=== PATIENT | female | born 1990 | race Two or more races ===

== ENCOUNTER 2017-10-07 18:17 | Emergency (ER) | payer MEDICAID ==
[2017-10-07 21:48] LABS: Hematocrit 37 % (35-47); Hemoglobin 12.5 g/dl (12.0-16.0); Mean Corpuscular HGB Conc 34 g/dl (31-36); Mean Corpuscular Hemoglobin 31 pg (27-31); Mean Corpuscular Volume 91 fL (80-97); Mean Platelet Volume 9 um3 (7.4-10.4); Red Blood Count 4.07 10^6/ul (4.0-5.4); Red Cell Distribution Width 14 % (10.5-15); White Blood Count 6.7 10^3/ul (3.5-10.8)
[2017-10-07 22:03] LABS: ALT 19 U/L (7-52); AST 20 U/L (13-39); Albumin 4.6 g/dL (3.2-5.2); Alkaline Phosphatase 68 U/L (34-104); Anion Gap 7 mmol/L (2-11); Blood Urea Nitrogen 9 mg/dL (6-24); C Reactive Protein 1.91 mg/L (< 5.00); CO2 Carbon Dioxide 26 mmol/L (22-32); Calcium 9.4 mg/dL (8.6-10.3); Chloride 107 mmol/L (101-111); Globulin 3.3 g/dL (2-4); Glucose 95 mg/dL (70-100); Lipase 39 U/L (11.0-82.0); Magnesium 2.2 mg/dL (1.9-2.7); Potassium 3.5 mmol/L (3.5-5.0); Sodium 140 mmol/L (133-145); Total Protein 7.9 g/dL (6.4-8.9)
[2017-10-07 22:24] LABS: BUN/Creatinine Ratio 16.1 (8-20); EGFR African American 165.8 (>60); EGFR Non-African American 128.9 (>60)
[2017-10-07] MEDS ORDERED: Ketorolac INJ* 60 MG/2 ML VIAL IM ONE (22:31)
--- NOTE | 2017-10-07 23:14 | ED ---
Abdominal Pain/Female - HPI Summary HPI Summary: 27 female presents to ED with with complaints of RLQ and right flank pain that has been ongoing for the past 2 weeks and worsening. 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 Patient states she has had pain in the same area for years, ever since getting a c -section 7 years ago, however this pain is worse and has been much more constant. Describes pain to be sharp and shooting that radiates into right flank/lower back and is constant. States the pain also gives her a headache. Takes ibuprofen and does have relief. Last dose was around 3pm today. Denies vomiting but admits to nausea. Denies constipation and diarrhea. LBM was today and normal. Denies vaginal bleeding, discharge. States she the pain worsens with urination. Denies fever/chills, chest pain, difficulty breathing. No PMHx. Denies taking any medications other than ibuprofen. States she does not get her menses very normally but did get it ~ 1 month ago. Denies concern for STD. - History of Current Complaint Chief Complaint: EDAbdPain Stated Complaint: ABD PAIN Time Seen by Provider: 10/07/17 22:02 Hx Obtained From: Patient Hx Last Menstrual Period: last month Onset/Duration: Gradual Onset, Lasting Weeks, Still Present, Worse Since Timing: Constant Severity Initially: Mild Severity Currently: Moderate Pain Intensity: 5 Pain Scale Used: 0-10 Numeric Location: Discrete At: RLQ Radiates: Yes Radiates to: Back, Flank Character: Sharp Aggravating Factor(s): Other: - urination, supine position Alleviating Factor(s): OTC Analgesics - ibuprofen Associated Signs and Symptoms: Positive: Urinary Symptoms - pain with urination , Nausea. Negative: Fever, Constipation, Decreased Appetite, Vaginal Bleeding, Vaginal Discharge, Vomiting, Diarrhea Allergies/Adverse Reactions: Allergies Allergy/AdvReac Type Severity Reaction Status Date / Time No Known Allergies Allergy Verified 10/08/17 01:22 PMH/Surg Hx/FS Hx/Imm Hx Endocrine/Hematology History: Denies: Hx Diabetes Cardiovascular History: Denies: Hx Hypertension Respiratory History: Denies: Hx Asthma - Surgical History Surgery Procedure, Year, and Place: n/a - Immunization History Immunizations Up to Date: Yes Infectious Disease History: No Infectious Disease History: Denies: Traveled Outside the [place] in Last 30 Days - Family History Known Family History: Positive: Unknown - Social History Alcohol Use: None Substance Use Type: Reports: None Smoking Status (MU): Never Smoked Tobacco Review of Systems Constitutional: Negative Cardiovascular: Negative Respiratory: Negative Positive: Abdominal Pain, Nausea Positive: dysuria Skin: Negative Positive: Headache All Other Systems Reviewed And Are Negative: Yes Physical Exam Triage Information Reviewed: Yes Vital Signs On Initial Exam: Initial Vitals Temp Pulse Resp BP Pulse Ox 98.2 F 55 18 124/70 100 10/07/17 18:22 10/07/17 18:22 10/07/17 18:22 10/07/17 18:22 10/07/17 18:22 Vital Signs Reviewed: Yes Appearance: Positive: Well-Appearing, Well-Nourished, Pain Distress - mild, holding RLQ, knees bent up toward abdomen Skin: Positive: Warm, Skin Color Reflects Adequate Perfusion, Dry. Negative: Cold, Cyanosis @, Jaundiced, Pale, Erythema @ Head/Face: Positive: Normal Head/Face Inspection Eyes: Positive: Conjunctiva Clear ENT: Positive: Hearing grossly normal, Pharynx normal Neck: Positive: Supple, Nontender, No Lymphadenopathy Respiratory/Lung Sounds: Positive: Clear to Auscultation, Breath Sounds Present. Negative: Rales, Rhonchi, Wheezes Cardiovascular: Positive: Normal, RRR, Pulses are Symmetrical in both Upper and Lower Extremities. Negative: Murmur, Rub Abdomen Description: Positive: No Organomegaly, Soft, CVA Tenderness (R), Guarding, Other: - negative rebound and psoas. tender on palpation of RLQ and suprapubic area. Negative: Bruit, CVA Tenderness (L), Distended, McBurney's Point Tenderness Bowel Sounds: Positive: Present Pelvic Exam: Positive: external exam normal, speculum exam normal, bimanual exam normal, no cerv. motion tender, no masses, discharge - green/white colored purulent discharge resembling BV infection. malodorous. no strawberry cervix or cervical motion tendnerss. vaginal ni erythematous and appear irritated. does not resemble olimpia., tender adnexa - R, tender uterus. Negative: active bleeding, blood, lesions, mass, tender w/ cervical motion Musculoskeletal: Positive: Normal, Strength/ROM Intact Neurological: Positive: Normal, Sensory/Motor Intact, Alert, Oriented to Person Place, Time, NV Bundle Intact Distally, Normal Gait Diagnostics - Vital Signs Vital Signs Temp Pulse Resp BP Pulse Ox 10/07/17 22:30 56 124/72 99 10/07/17 22:29 58 100 10/07/17 20:40 99.4 F 54 16 116/69 100 10/07/17 18:22 98.2 F 55 18 124/70 100 - Laboratory Lab Results: Lab Results 10/07/17 10/07/17 10/07/17 Range/Units 21:33 21:33 21:33 WBC 6.7 (3.5-10.8) 10^3/ul RBC 4.07 (4.0-5.4) 10^6/ul Hgb 12.5 (12.0-16.0) g/dl Hct 37 (35-47) % MCV 91 (80-97) fL MCH 31 (27-31) pg MCHC 34 (31-36) g/dl RDW 14 (10.5-15) % Plt Count 205 (150-450) 10^3/ul MPV 9 (7.4-10.4) um3 Neut % (Auto) 52.8 (38-83) % Lymph % (Auto) 38.2 (25-47) % Tompkins % (Auto) 7.2 (1-9) % Eos % (Auto) 1.4 (0-6) % Baso % (Auto) 0.4 (0-2) % Absolute Neuts (auto) 3.5 (1.5-7.7) 10^3/ul Absolute Lymphs (auto) 2.6 (1.0-4.8) 10^3/ul Absolute Monos (auto) 0.5 (0-0.8) 10^3/ul Absolute Eos (auto) 0.1 (0-0.6) 10^3/ul Absolute Basos (auto) 0 (0-0.2) 10^3/ul Absolute Nucleated RBC 0 10^3/ul Nucleated RBC % 0.1 Sodium 140 (133-145) mmol/L Potassium 3.5 (3.5-5.0) mmol/L Chloride 107 (101-111) mmol/L Carbon Dioxide 26 (22-32) mmol/L Anion Gap 7 (2-11) mmol/L BUN 9 (6-24) mg/dL Creatinine 0.56 (0.51-0.95) mg/dL Est GFR ( Amer) 165.8 (>60) Est GFR (Non-Af Amer) 128.9 (>60) BUN/Creatinine Ratio 16.1 (8-20) Glucose 95 (70-100) mg/dL Lactic Acid 1.3 (0.5-2.0) mmol/L Calcium 9.4 (8.6-10.3) mg/dL Magnesium 2.2 (1.9-2.7) mg/dL Total Bilirubin 0.40 (0.2-1.0) mg/dL AST 20 (13-39) U/L ALT 19 (7-52) U/L Alkaline Phosphatase 68 (34-104) U/L C-Reactive Protein 1.91 (< 5.00) mg/L Total Protein 7.9 (6.4-8.9) g/dL Albumin 4.6 (3.2-5.2) g/dL Globulin 3.3 (2-4) g/dL Albumin/Globulin Ratio 1.4 (1-3) Lipase 39 (11.0-82.0) U/L Beta HCG, Quant < 0.60 mIU/mL Result Diagrams: 10/07/17 21:33 10/07/17 21:33 Lab Statement: Any lab studies that have been ordered have been reviewed, and results considered in the medical decision making process. - CT abd/pelvis without CT Interpretation: No Acute Changes - no nephrolithiasis, urterolithiassis or obstructive uropathy. no bladder calculi. unremarkable pancreas and gallbladder. no bowel obstruction, colitis, diverticulitis, free fluid or free air. normal appendix. normal CT abd/pelvis. CT Interpretation Completed By: Radiologist - Ultrasound No standard instances Ultrasound Interpretation: No Acute Changes - RLQ and transvaginal US: appendix is not visualized. normal uterus normal homogeneous endometrial complex measuring 4mm in thickness. normal follicular right ovary with positive doppler blood flow. normal follicular left ovary with positive dopple blood flow. no acute abnormalities. Ultrasound Interpretation Completed By: Radiologist Re-Evaluation - Re-Evaluation First Eval Re-Evaluation Time: 23:46 Change: Improved - had relief after toradol 6/10 Abdominal Pain Fem Course/Dx - Course Course Of Treatment: given toradol for pain had relief. labs obtained and unmarkable without any signs of infection or inflammation. obtained RLQ and transvaginal ultrasound without abnormal findings. CT abd/pelvis obtained to rule out renal calculi and other etiology, was normal without acute findings. normal vitals and PE findings other than tenderness on palpation of RLQ. upon pelvic exam noted probable BV infection. will treat with flagyl. could be cause of pain. patient denied STD concern however may not understand question completely due to language barrier. Will wait for culture results. Sent home on flagyl. Ibuprofen/tylenol for pain. Aware of worsening signs and symptoms and to return if occur. Follow up with PCP. No concern for other etiology at this time. Patient agrees and understands. Patient will need angolan interpretor if called for med change or culture results. - Diagnoses Differential Diagnosis: Positive: Appendicitis, Constipation, Diverticulitis, Ovarian Cyst, Pelvic Inflammatory Disease, Renal Colic, Urinary Tract Infection , Other - renal calculi Provider Diagnoses: Bacterial vaginosis, Lower abdominal pain Discharge - Discharge Plan Condition: Stable Disposition: HOME Prescriptions: Metronidazole [Flagyl 500 MG TAB] 500 mg PO BID #13 tab Patient Education Materials: Bacterial Vaginosis (ED), Acute Abdominal Pain (ED ) Print Language: PRYDEINIG Referrals: [facility] [Outside] Noreen Pacheco MD [Medical Doctor] - No Primary Care Phys,NOPCP [Primary Care Provider] - Additional Instructions: Take medication as prescribed until entire dose is finished. Any new or worsening symptoms please seek medical attention promptly. Follow up with PCP.
[2017-10-08 01:45] LABS: Urine Bacteria Absent (Absent); Urine Bilirubin Negative (Negative); Urine Glucose Negative (Negative); Urine Nitrite Negative (Negative)
[2017-10-08] MEDS ORDERED: metroNIDAZOLE TAB* 250 MG PO ONE (01:59)
[2017-10-08 04:48] VITALS: BP 106/65
[2017-10-08 07:03] LABS: Trichomonas Source Endocervical (Negative)
--- NOTE | 2017-10-08 09:55 | RAD ---
CLINICAL HISTORY: Right flank and lower quadrant pain COMPARISON: Same day ultrasound of the right lower quadrant and pelvis that did not discretely visualize the appendix or demonstrate any acute gynecologic abnormalities. TECHNIQUE: Noncontrast CT examination of the abdomen and pelvis from the lung bases through the initial tuberosities. FINDINGS: VISUALIZED LUNG BASES: The visualized lung bases are grossly clear. There is no pleural effusion. ABDOMEN AND PELVIS: Evaluation of the solid organs and vasculature is limited without intravenous contrast. The liver, spleen, pancreas and adrenal glands are grossly normal in appearance. The gallbladder is normal. The kidneys are normal in appearance without focal mass, calcification or signs of hydronephrosis. Evaluation of the gastrointestinal tract is limited without oral contrast. The small and large bowel are not distended.The patient's normal appendix is identified in the right lower quadrant measuring just under 6 mm in diameter with gas in the lumen. There is no gross retroperitoneal or mesenteric lymphadenopathy. The pelvic viscera is normal in appearance. The abdominal aorta and iliac arteries are normal in course and diameter. There are no sinister bone lesions. IMPRESSION: Normal CT examination.
--- NOTE | 2017-10-08 13:00 | RAD ---
INDICATION: Right lower quadrant and suprapubic pain COMPARISON: None. TECHNIQUE: Real-time transabdominal and transvaginal ultrasound examination of the female pelvis as well as sonographic examination of the right lower quadrant including grayscale and Doppler color flow imaging. FINDINGS: Uterus: The uterus is normal in size and echogenicity measuring 7.2 x 3.3 x 3.9 cm. The endometrial stripe is smooth and uniform measuring 4 mm in thickness. Ovaries: The right and left ovary measure 2.9 x 1.2 x 3.1 cm and 2.9 x 2.1 x 2.7 cm, respectively. Normal arterial and venous waveforms are identified. A 9 mm hyperechogenic focus in the left ovary is most consistent with a dominant follicle in a woman of this age. There is no free fluid in the cul-de-sac. Dedicated imaging of the right lower quadrant as not visualize the appendix. There is no fluid collection or visible lymphadenopathy. IMPRESSION: 1. Normal and age-appropriate pelvic ultrasound. 2. Nonvisualization of the appendix and no inflammatory changes in the right lower quadrant.
--- NOTE | 2017-10-09 09:00 | PN ---
Progress Note - Progress Note Date of Service: 10/09/17 Note: Patient vaginal culture grew gardnerella. Patient placed on flagyl so no further action needed.
--- NOTE | 2017-10-10 08:52 | PN ---
Progress Note - Progress Note Date of Service: 10/10/17 Note: Patient urine grew strep group b 1-10,000. This is likely a contaminate so will not treat at this time.
== END 2017-10-08 03:00 | disposition home or self-care (01) ==
LOC: ED 18:17
DX: N76.0 Acute vaginitis (principal); R10.30 Lower abdominal pain, unspecified; B95.1 Streptococcus, group B, as the cause of diseases classified elsewhere
CPT/HCPCS: 36415; 74176; 76705; 76830; 80053; 81003; 81015; 83605; 83690; 83735; 84702; 85025; 86140; 87077; 87086; 87480; 87491; 87510; 87591; 87661; 96372; 99283; A9270-GY; J1885

== ENCOUNTER 2019-07-08 14:52 | Emergency (ER) | payer MEDICAID ==
[2019-07-08 15:37] LABS: ABS Lymphocytes 1.9 10^3/ul (1.0-4.8); ABS Monocytes 0.6 10^3/ul (0-0.8); ABS Neutrophils 7.5 10^3/ul (1.5-7.7); Eosinophil % 0.5 %; Hematocrit 34 % (35-47); Hemoglobin 11.5 g/dL (12.0-16.0); Lymphocyte % 19.2 %; Mean Corpuscular HGB Conc 34 g/dL (31-36); Mean Corpuscular Hemoglobin 31 pg (27-31); Mean Corpuscular Volume 90 fL (80-97); Mean Platelet Volume 8.7 fL (7.4-10.4); Platelet Count 201 10^3/uL (150-450); Red Blood Count 3.74 10^6 /uL (3.70-4.87); Red Cell Distribution Width 13 % (10-15); White Blood Count 10.1 10^3/uL (3.5-10.8)
[2019-07-08 16:00] LABS: Albumin 4.1 g/dL (3.2-5.2); Albumin/Globulin Ratio 1.5 (1-3); C Reactive Protein 4.24 mg/L (<8.01); Calcium 8.9 mg/dL (8.6-10.3); EGFR African American 175.3 (>60); EGFR Non-African American 144.9 (>60); Globulin 2.7 g/dL (2-4); Potassium 3.4 mmol/L (3.5-5.0); Total Bilirubin 0.3 mg/dL (0.2-1.0); Total Protein 6.8 g/dL (6.4-8.9)
--- OUTSIDE RECORDS SUMMARY | 2019-07-08 17:45 | XMS REPORT ---
:1990 Author Organization [facility] Address [address] [place] [address] Care Team Providers Name Role Phone Minor Patel Unavailable Unavailable PROBLEMS Type Condition ICD9-CM Code [id number] Code Onset Condition SNOMED Code Dates Status Problem Other chronic G89.29 Active 81443567 pain Problem Primary insomnia F51.01 Active 5337749 Problem History of Z86.32 Active 368396229 gestational diabetes Problem Hx gestational Z86.32 Active 118472487 diabetes ALLERGIES No Information ENCOUNTERS Encounter Location Date Diagnosis Facilitated Enrollment - UNKNOWN Jul, [address] Jun, [facility] [place] [address] Jun, [facility] [place] [address] Jun, [facility] [place] [address] Jun, Pain of right upper [facility] [place] [address] extremity M79.601 ; Positive urine test Z32.01 and Routine screening for STI (sexually transmitted infection) Z11.3 [facility] [address] [facility] [place], [place] [address] Apr, [facility] [place] [address] Apr, Encounter for Nexplanon [facility] [place] [address] removal Z[address] Apr, [facility] [place] [address] Case Management [address] [place], [place] [address] [place] [address] [place], [place] [address] [place] [address] [place] Apr, [facility] [place] [address] [place] [address] [place] Feb, [facility] [place] [address] [place] [address] [place] Jan, [facility] [place] [address] [facility] - Resource - [place] UNKNOWN Jan, [place] [address] [place] Jan, [facility] [place] [address] [place] [address] [place] Jan, [facility] [place] [address] [place] [address] [place] Dec, [facility] [place] [address] [place] Jaleel Migrant [address] May, Pain of left foot M79.672 [facility] [address] [place], [place] ; Pain in right foot [id number] M79.671 and Primary insomnia F51.01 Case Management [address] [place], [place] [address] [place] [address] [place] Apr, [facility] [place] [address] Case Management [address] [place], [place] [address] [place] Guidoy Migrant [address] Apr, [facility] [address] [place], [place] [id number] Case Management [address] [place], [place] [address] [facility] [address] Apr, Low back pain M54.5 and [address] [place], [place] Other chronic pain G89.29 [id number] [place] [place] [facility] [address] March, [facility] [address] [place], [place] [id number] [address] [place], [place] [address] [facility] [place] [facility] [address] March, Salivary duct obstruction [facility] [address] [place], [place] K11.8 ; Low back pain [id number] M54.5 and Other chronic pain G89.29 [facility] [address] [place], [place] [address] Jan, [place] [address] [facility] [address] Nov, Screening for [address] [place], [place] hypertension Z13.6 ; [id number] Screening for diabetes mellitus (DM) Z13.1 ; Hx gestational diabetes Z86.32 and Influenza vaccine administered Z23 [place] [address] [place], [facility] [place] [address] [place] Jaleel Migrant [address] Aug, [facility] [address] [place] [id number] [place] Jaleel Navarro [address] Jul, Women's annual routine [facility] [address] [place] gynecological examination [id number] Z01.419 ; Encounter for screening for malignant neoplasm of cervix Z12.4 ; Screening breast examination Z12.31 ; Scar contracture L90.5 and History of gestational diabetes Z86.32 [facility] [address] Jul, [address] [place], [place] [id number] [address] [place], [facility] [place] [address] [place] [address] [place] Jun, [facility] [place] [address] [place] May, [facility] [place] [address] [place] [address] [place] Apr, [facility] [place] [address] [facility] [address] March, [address] [place] [id number] [address] [place], Nexplanon insertion [facility] [place] [address] Z[address] Feb, [place] [address] [place] [address] [place] Sep, [facility] [place] [address] Case Management [address] [place], [place] [address] [place] Jaleel Navarro [address] Aug, [facility] [address] [place], [place] [id number] Case Management [address] [place], [place] [address] [facility] [address] Aug, [address] [place], [place] [id number] [facility] [address] Sep, [address] [place] [id number] [facility] [address] Sep, Need for prophylactic [address] [place], [place] vaccination and [id number] inoculation against influenza Z23 Case Management [address] [place], [place] [address] Jun, [place] [address] lower quadrant 789.03 and Obesity 278.00 [facility] [address] May, [address] [place], [place] [id number] [facility] [address] [place] [address] Rd Suite May, ABDMNAL PAIN [facility] S[address] [place] 789.00 and SCREEN FOR [id number] HYPERTENSION V81.1 [facility] [address] [place] [address] Rd [address] May, [address] [place], [place] [id number] [address] May, [place] [address] Chau Jaleel Migrant [address] [place] [address] Rd [address] May, Amenorrhea 626.0 ; [facility] [address] [place], [place] History of gestational [id number] diabetes V12.21 ; Contraception management V25.9 and Pelvic pain in female 625.[address] March, [place] [address] Facilitated Enrollment - [address] [facility] March, [facility] [place] [address] [facility] [address] [place] [address] Rd Suite Dec, SCREEN FOR HYPERTENSION [address] [place], [place] V81.1 ; History of [id number] gestational diabetes V12.21 and Abnormal glucose 790.29 Facilitated Enrollment - UNKNOWN Oct, [facility] [address] [facility] Jun, [place] [address] Case Management [address] [place], [place] [address] IMMUNIZATIONS No Known Immunizations SOCIAL HISTORY Never Assessed REASON FOR REFERRAL FUNCTIONAL STATUS PLAN OF CARE VITAL SIGNS MEDICATIONS Unknown Medications PROCEDURES No Known procedures RESULTS No Results REASON FOR VISIT Information Request Insurance Providers [facility] Patient Patient Patient Patient Patient Subscriber Subscriber Subscriber Group Insurance Plan Plan Plan Plan ID Relationship Address Phone Name Date of ID Name Date of No Type Insurance Insurance Insurance Coverage to Subscriber Address Phone Name Dates Medicaid [phone] Medicaid self [place] [id number] [facility] [address] [place] [address] Srinivas Case Man [phone] Case Man self [place]ises [id number] [facility] David Mg [address] [place] [address] InCdiane Espino Voucher Voucher Case Man [phone] Case Man self Ul[place] [id number] [place] [facility] [address] John Espino Voucher Voucher MEDICAL (GENERAL) HISTORY Type Description Date Medical History History of gestational Diabetes in 2009 and 2013, on oral meds Medical History Pre-diabetes: A1c: 6.0 in 12/2014. Surgical History 2009 Hospitalization History 2010
--- OUTSIDE RECORDS SUMMARY | 2019-07-08 17:45 | XMS REPORT ---
:1989 Author Organization [facility] Address [address] [place] [address] Care Team Providers Name Role Phone Priyanka Hughes Unavailable Unavailable PROBLEMS Type Condition ICD9-CM Code [id number] Code Onset Condition SNOMED Code Dates Status Problem Other chronic G89.29 Active 00725363 pain Problem Primary insomnia F51.01 Active 2331505 Problem History of Z86.32 Active 942215683 gestational diabetes Problem Hx gestational Z86.32 Active 837806237 diabetes ALLERGIES No Information ENCOUNTERS Encounter Location Date Diagnosis Facilitated Enrollment - UNKNOWN Jul, [address] Jun, [facility] [address] Jun, [facility] [place] [address] Jun, [facility] [place] [address] Jun, [facility] [place] [address] Jun, Pain of right upper [facility] [place] [address] extremity M79.601 ; Positive urine test Z32.01 and Routine screening for STI (sexually transmitted infection) Z11.3 [facility] [address] [place], [place] [address] Apr, [facility] [address] Apr, Encounter for Nexplanon [facility] [address] removal Z30.[address] Apr, [place] [address] Case Management [address] [place], [place] [address] [facility] [address] [place], [place] [address] [place] [address] [place] Apr, [facility] [place] [address] [facility] [address] [place] Feb, [facility] [place] [address] [facility] [address] [place] Jan, [facility] [place] [address] [facility] - Resource - [place] UNKNOWN Jan, [facility] [address] [place] Jan, [facility] [place] [address] [place] [address] Jan, [facility] [place] [address] [facility] [address] [place] Dec, [facility] [place] [address] King Jaleel Migrant [address] Suite May, Pain of left foot M79.672 [facility] [address] [place], [place] ; Pain in right foot [id number] M79.671 and Primary insomnia F51.01 Case Management [address] [place], [place] [address] [facility] [address] [place] Apr, [facility] [place] [address] Case Management [address] [place], [place] [address] King Guidoy Migrant [address] Suite Apr, [facility] Center [address] [place], [place] [id number] Case Management [address] [place], [place] [address] [facility] [address] Suite Apr, Low back pain M54.5 and [address] [place], [place] Other chronic pain G89.29 [id number] Chau Morton Migrant [address] Suite March, [facility] Center [address] [place], [place] [id number] [address] [place], [place] [address] Chau Morton Migrant [address] Suite March, Salivary duct obstruction [facility] [address] [place], [place] K11.8 ; Low back pain 821536611 M54.5 and Other chronic pain G89.29 Case Management [address] [place], [place] [address] Jan, [place] [address] [facility] [address] Jules, 2018 Screening for [address] [place] hypertension Z13.6 ; [id number] Screening for diabetes mellitus (DM) Z13.1 ; Hx gestational diabetes Z86.32 and Influenza vaccine administered Z23 [address] [place] Sep, [facility] [place] [address] King Jaleel Migrant [address] Suite Aug, [facility] [address] [place], [place] [id number] King Jaleel Migrant [address] Suite Jul, Women's annual routine [facility] Center [address] [place] gynecological examination [id number] Z01.419 ; Encounter for screening for malignant neoplasm of cervix Z12.4 ; Screening breast examination Z12.31 ; Scar contracture L90.5 and History of gestational diabetes Z86.32 [facility] [address] Suite Jul, [address] [place] [id number] [address] [place] Jun, [facility] [place] [address] [place] [address] [place] Jun, [place] [address] [place] May, [place] [address] [place] [address] [place], [place] [address] [facility] [address] [place] [address] Rd Suite March, [address] [place], [place] [id number] [address] [place] March, [place] [address] Z[address] Feb, [place] [address] [place] [address] [place], [place] [address] Case Management [address] [place], [place] [address] King Jaleel Migrant [address] Aug, [facility] Center [address] [place], [place] [id number] Case Management [address] [place], [place] [address] [facility] [address] Aug, [address] [place], [place] [id number] [facility] [address] Suite Sep, [address] [place], [place] [id number] [facility] [address] Suite Sep, Need for prophylactic [address] [place], [place] vaccination and [id number] inoculation against influenza Z23 Case Management [address] [place], [place] [address] Jun, Abdominal pain, [place] [address] lower quadrant 789.03 and Obesity 278.00 [facility] [address] May, [address] [place], [place] [id number] [facility] [address] [place] [address] Rd Suite May, ABDMNAL PAIN UNSPCF SITE [address] [place] 789.00 and SCREEN FOR [id number] HYPERTENSION V81.1 [facility] [address] [place] [address] Rd Suite May, [address] [place] [id number] [address] [place], [place] [address] Chau Jaleel Migrant [address] [place] [address] Rd Suite May, Amenorrhea 626.0 ; [facility] [address] [place] History of gestational 465507955 diabetes V12.21 ; Contraception management V25.9 and Pelvic pain in female 625.[address] March, [facility] [place] [address] Facilitated Enrollment - 160 [facility] March, [place] [address] [facility] [address] [place] [address] Rd Suite Dec, SCREEN FOR HYPERTENSION [address] [place], [place] V81.1 ; History of 086512062 gestational diabetes V12.21 and Abnormal glucose 790.29 Facilitated Enrollment - UNKNOWN Oct, [facility] [address] [facility] Jun, [place] [address] Case Management [address] [place], [place] [address] IMMUNIZATIONS No Known Immunizations SOCIAL HISTORY Never Assessed REASON FOR REFERRAL FUNCTIONAL STATUS PLAN OF CARE VITAL SIGNS MEDICATIONS Unknown Medications PROCEDURES No Known procedures RESULTS No Results REASON FOR VISIT [facility] Insurance Providers [facility] Member Patient Patient Patient Patient Patient Subscriber Subscriber Subscriber Group Insurance Plan Plan Plan Plan ID Relationship Address Phone Name Date of ID Name Date of No Type Insurance Insurance Insurance Coverage to Subscriber Address Phone Name Dates Case Man [phone] Case Man self Ulises [id number] [place] [address] InCdiane Espino Voucher Voucher Case Man [phone] Case Man self Ulises [id number] [facility]FW [place] 02 [facility] [address] [place] Srinivas Voucher Voucher Case [phone] Case self Ulises [id number] Management [place] 02 Management [facility] [address] [facility] Medicaid [id number] Medicaid self Ulises [id number] [facility] 00 [facility] [address] Srinivas MEDICAL (GENERAL) HISTORY Type Description Date Medical History History of gestational Diabetes in 2009 and 2013, on oral meds Medical History Pre-diabetes: A1c: 6.0 in 12/2014. Surgical History 2009 Hospitalization History 2010
--- OUTSIDE RECORDS SUMMARY | 2019-07-08 17:46 | XMS REPORT ---
:1989 Author Organization [facility] Address [address] [place] [address] Care Team Providers Name Role Phone Minor Patel Unavailable Unavailable PROBLEMS Type Condition ICD9-CM Code [id number] Code Onset Condition SNOMED Code Dates Status Problem Other chronic G89.29 Active 59783368 pain Problem Primary insomnia F51.01 Active 4250311 Problem History of Z86.32 Active 105649774 gestational diabetes Problem Hx gestational Z86.32 Active 864326855 diabetes ALLERGIES No Information ENCOUNTERS Encounter Location Date Diagnosis Facilitated Enrollment - UNKNOWN Jul, [address] Jun, [facility] [place] [address] Jun, [facility] [place] [address] Jun, Pain of right upper [facility] [place] [address] extremity M79.601 ; Positive urine test Z32.01 and Routine screening for STI (sexually transmitted infection) Z11.3 [facility] [address] [facility] [place], [place] [address] Apr, [facility] [place] [address] Apr, Encounter for Nexplanon [facility] [place] [address] removal Z30.[address] Apr, [facility] [place] [address] Case Management [address] [place], [place] [address] SODUS [facility] [address] [place], [place] [address] [place] Apr, [facility] [place] [address] [facility] [address] [place] Feb, [facility] [place] [address] [facility] [address] [place] Jan, [facility] [place] [address] [facility] - Resource - [place] UNKNOWN Jan, [facility] [address] [place] Jan, [facility] [place] [address] [place] [address] [place] Jan, [facility] [place] [address] [facility] [address] [place] Dec, [place] [address] King Jaleel Navarro [address] May, Pain of left foot M79.672 [facility] [address] [place], [place] ; Pain in right foot [id number] M79.671 and Primary insomnia F51.01 Case Management [address] [place], [place] [address] [facility] [address] [place] Apr, [facility] [place] [address] Case Management [address] [place], [place] [address] King Jaleel Migrant [address] Apr, [facility] [address] [place], [place] [id number] Case Management [address] [place], [place] [address] [facility] [address] Suite Apr, Low back pain M54.5 and [address] [place], [place] Other chronic pain G89.29 [id number] King Guidoy Migrant [address] March, [facility] Center [address] [place], [place] [address] [address] [place], [place] [address] King Guidoy Migrant [address] March, Salivary duct obstruction [facility] [address] [place], [place] K11.8 ; Low back pain 308796043 M54.5 and Other chronic pain G89.29 Case Management [address] [place], [place] [address] Jan, [place] [address] [facility] [address] Nov, Screening for [address] [place] hypertension Z13.6 ; [id number] Screening for diabetes mellitus (DM) Z13.1 ; Hx gestational diabetes Z86.32 and Influenza vaccine administered Z23 [place] [address] [place] Sep, [facility] [place] [address] King Jaleel Migrant [address] Aug, [facility] Center [address] [place], [place] [id number] King Jaleel Migrant [address] Jul, Women's annual routine [facility] Center [address] [place] gynecological examination 154871954 Z01.419 ; Encounter for screening for malignant neoplasm of cervix Z12.4 ; Screening breast examination Z12.31 ; Scar contracture L90.5 and History of gestational diabetes Z86.32 [facility] [address] Jul, [address] [place], [place] [id number] [address] [place] Jun, [facility] [place] [address] [place] Jun, [facility] [place] [address] [place] May, [facility] [place] [address] [place] Apr, [facility] [place] [address] [facility] [address] Suite March, [address] [place], [place] [id number] [address] [place] March, Nexplanon insertion [facility] [place] [address] Z30[address] Feb, [place] [address] [place] Sep, [facility] [place] [address] Case Management [address] [place], [place] [address] King Jaleel Migrant [address] Aug, [facility] Center [address] [place], [place] [id number] Case Management [address] [place], [place] [address] [facility] [address] Aug, [address] [place], [place] [id number] [facility] [address] Sep, [address] [place], [place] [id number] [facility] [address] Suite Sep, Need for prophylactic [address] [place] vaccination and [id number] inoculation against influenza Z23 Case Management [address] [place], [place] [address] [place] [address] [place] Jun, Abdominal pain, right [facility] [place] [address] lower quadrant 789.03 and Obesity 278.00 [facility] [address] [place] [address] Rd Suite May, [address] [place], [place] [id number] [facility] [address] [place] [address] Rd Suite May, ABDMNAL PAIN UNSPCF SITE [address] [place] 789.00 and SCREEN FOR [id number] HYPERTENSION V81.1 [facility] [address] [place] [address] Rd Suite May, [address] [place], [place] [id number] [address] [place] May, [place] [address] King Jaleel Migrant [address] [place] [address] Rd Suite May, Amenorrhea 626.0 ; [facility] Center [address] [place], [place] History of gestational 479446546 diabetes V12.21 ; Contraception management V25.9 and Pelvic pain in female 625.[address] March, [facility] [place] [address] Facilitated Enrollment - 160 [facility] March, [place] [address] [facility] [address] [place] [address] Rd Suite Dec, SCREEN FOR HYPERTENSION [address] [place], NATE V81.1 ; History of 579587368 gestational diabetes V12.21 and Abnormal glucose 790.29 Facilitated Enrollment - UNKNOWN Oct, [facility] [address] [facility] Jun, [place] [address] Case Management [address] [place], [place] [address] IMMUNIZATIONS No Known Immunizations SOCIAL HISTORY Never Assessed REASON FOR REFERRAL FUNCTIONAL STATUS PLAN OF CARE VITAL SIGNS MEDICATIONS Medication Instructions Dosage Frequency Start End Date Duration Status Date Orally Once a day 1 tablet 24h Jun, day(s) Active Vitamin 27-0.8 2019 MG PROCEDURES No Known procedures RESULTS No Results REASON FOR VISIT Medication Insurance Providers [facility] Member Patient Patient Patient Patient Patient Subscriber Subscriber Subscriber Group Insurance Plan Plan Plan Plan ID Relationship Address Phone Name Date of ID Name Date of No Type Insurance Insurance Insurance Coverage to Subscriber Address Phone Name Dates Case Man [phone] Case Man self Ulises [id number] [facility] [place] [address] [place] [address] InCdiane Espino Voucher Voucher Case Man [phone] Case Man self Ulises [id number] [facility] David Mg [address] [facility] [place] [address] [place] Srinivas Voucher Voucher MEDICAL (GENERAL) HISTORY Type Description Date Medical History History of gestational Diabetes in 2009 and 2013, on oral meds Medical History Pre-diabetes: A1c: 6.0 in 12/2014. Surgical History 2009 Hospitalization History 2010
--- OUTSIDE RECORDS SUMMARY | 2019-07-08 17:46 | XMS REPORT ---
:1989 Author Organization [facility] Address [address] [place] [address] Care Team Providers Name Role Phone Priyanka Hughes Unavailable Unavailable PROBLEMS Type Condition ICD9-CM Code [id number] Code Onset Condition SNOMED Code Dates Status Problem Other chronic G89.29 Active 03219158 pain Problem Primary insomnia F51.01 Active 0034145 Problem History of Z86.32 Active 417698305 gestational diabetes Problem Hx gestational Z86.32 Active 801500348 diabetes ALLERGIES No Known Allergies ENCOUNTERS Encounter Location Date Diagnosis Facilitated Enrollment - UNKNOWN Jul, [address] Jun, [place] [address] Jun, [place] [address] Jun, Pain of right upper [facility] [place] [address] extremity M79.601 ; Positive urine test Z32.01 and Routine screening for STI (sexually transmitted infection) Z11.3 [facility] [address] [facility], [place] [address] Apr, [place] [address] Apr, Encounter for ExceleraRxplanon [facility] [place] [address] removal Z30.[address] Apr, [place] [address] Case Management [address] [place], [place] [address] SODUS [facility] [address] [place], [place] [address] Apr, [facility] [place] [address] [facility] [address] [place] Feb, [facility] [place] [address] [facility] [address] [place] Jan, [facility] [place] [address] [facility] - Resource - [place] UNKNOWN Jan, [place] [facility] [facility] [address] [place] Jan, [facility] [place] [address] [facility] [address] [place] Jan, [facility] [place] [address] [place] [facility] [address] [place] Dec, [place] [address] King Jaleel Migrant [address] May, Pain of left foot M79.672 [facility] [address] [place], [place] ; Pain in right foot [id number] M79.671 and Primary insomnia F51.01 Case Management [address] [place], [place] [address] [place] [facility] [address] [place] Apr, [facility] [address] Case Management [address] [place], [place] [address] King Jaleel Migrant [address] Suite Apr, [facility] Center [address] [place], [place] [id number] Case Management [address] [place], [place] [address] [facility] [address] Suite Apr, Low back pain M54.5 and [address] [place], [place] Other chronic pain G89.29 [id number] King Guidoy Migrant [address] March, [facility] Center [address] [place], [place] [id number] [address] [place], [place] [address] King Guidoy Migrant [address] March, Salivary duct obstruction [facility] [address] [place], [place] K11.8 ; Low back pain 245979342 M54.5 and Other chronic pain G89.29 Case Management [address] [place], [place] [address] Jan, [place] [address] [facility] [address] Suite Nov, Screening for [address] [place], [place] hypertension Z13.6 ; [id number] Screening for diabetes mellitus (DM) Z13.1 ; Hx gestational diabetes Z86.32 and Influenza vaccine administered Z23 [place] [place] Sep, Health [place] [address] King Jaleel Migrant [address] Aug, [facility] Center [address] [place], [place] [id number] King Jaleel Migrant [address] Jul, Women's annual routine [facility] Center [address] [place] gynecological examination 5425[address]377 Z01.419 ; Encounter for screening for malignant neoplasm of cervix Z12.4 ; Screening breast examination Z12.31 ; Scar contracture L90.5 and History of gestational diabetes Z86.32 [facility] [address] Jul, [address] [place], [place] [id number] [place] [place] Jun, [facility] [address] [place] Jun, [facility] [place] [address] [place] May, [facility] [place] [address] [place] Apr, [facility] [place] [address] [facility] [address] March, [address] [place], [place] [id number] [address] [place] March, Nexplanon insertion [facility] [place] [address] Z30.[address] Feb, [place] [address] [place] Sep, [facility] [place] [address] Case Management [address] [place], [place] [address] King Jaleel Migrant [address] Aug, Health Center [address] [place], [place] [id number] Case Management [address] [place], [place] [address] [facility] [address] Aug, [address] [place], [place] [id number] [facility] [address] Sep, [address] [place], [place] [id number] [facility] [address] Sep, Need for prophylactic [address] [place], [place] vaccination and 440502397 inoculation against influenza Z23 Case Management [address] [place], [place] [address] [place] Jun, Abdominal pain, right [facility] [place] [address] lower quadrant 789.03 and Obesity 278.00 [facility] [address] [place] [address] Suite May, [address] [place], [place] [id number] [facility] [address] [place] [address] Suite May, ABDMNAL PAIN UNSPCF SITE [address] [place], [place] 789.00 and SCREEN FOR [id number] HYPERTENSION V81.1 [facility] [address] [place] [address] Suite May, [address] [place], [place] [id number] [address] May, [place] [address] Chau Jaleel Migrant [address] [place] [address] Suite May, Amenorrhea 626.0 ; [facility] Center [address] [place] History of gestational 416653684 diabetes V12.21 ; Contraception management V25.9 and Pelvic pain in female 625.[address] March, [place] [address] Facilitated Enrollment - 160 [facility] March, [place] [address] [facility] [address] [place] [address] Suite Dec, SCREEN FOR HYPERTENSION [address] [place], [place] V81.1 ; History of 306560272 gestational diabetes V12.21 and Abnormal glucose 790.29 Facilitated Enrollment - UNKNOWN Oct, [facility] [address] Jun, [place] [address] Case Management [address] [place], [place] [address] IMMUNIZATIONS No Known Immunizations SOCIAL HISTORY Never Assessed REASON FOR REFERRAL FUNCTIONAL STATUS PLAN OF CARE Activity Details Follow Up 1 Week Reason:f/u right arm pain Pending Test HCG, TOTAL, QL Pending Test HCG, TOTAL, QN Pending Test HEPATITIS PANEL, GENERAL Pending Test CHLAMYDIA TRACHOMATIS RNA, TMA, UROGENITAL Pending Test HIV 1/2 ANTIGEN/ANTIBODY,FOURTH GENERATION W/RFL Pending Test RPR (DX) W/REFL TITER AND CONFIRMATORY TESTING Pending Test CHLAMYDIA/N. GONORRHOEAE RNA, TMA, UROGENITAL VITAL SIGNS Temperature 98.4 degrees Fahrenheit 2019-06-18 Heart Rate 20 2019-06-18 Weight 153.1 2019-06-18 Height 57.4 in 2019-06-18 BMI 32.67 kg/m2 2019-06-18 Oximetry 99RA % 2019-06-18 Blood pressure systolic 107 mm Hg 2019-06-18 Blood pressure diastolic 70 mm Hg 2019-06-18 MEDICATIONS Medication Instructions Dosage Frequency Start End Date Duration Status Date [facility] Orally Once a day 1 tablet 24h Jun, day(s) Active 28-0.8 MG 2018 PROCEDURES Procedure Date Ordered Result Body Site Sign Lang/Oral Meter Setter > 8 minutes Jun 18, 2019 Urine test Jun 18, 2019 BODY MASS INDEX DOCD Jun 18, 2019 SMOKING + 2ND HAND ASSESSED Jun 18, 2019 Oxygen saturation results documented and reviewed Jun 18, 2019 BLOOD PRESSURE, MEASURED Jun 18, 2019 RESULTS Name Result Date Reference Range - Test, Urine 2019-06-18 Test, Urine positive Now Desired Not Desired Sooner Desired Later Desired Unknown REASON FOR VISIT numbness Insurance Providers [facility] Member Patient Patient Patient Patient Patient Subscriber Subscriber Subscriber Group Insurance Plan Plan Plan Plan ID Relationship Address Phone Name Date of ID Name Date of No Type Insurance Insurance Insurance Coverage to Subscriber Address Phone Name Dates Case Man [phone] Case Man self Ulises [id number] [facility] [place] [place] [address] [place] [address] [place] Srinivas Voucher Voucher Case Man [phone] Case Man self Ulises [id number] [facility] [place] [place] 02 [place] [address] [place] Srinivas Voucher Voucher MEDICAL (GENERAL) HISTORY Type Description Date Medical History History of gestational Diabetes in 2009 and 2013, on oral meds Medical History Pre-diabetes: A1c: 6.0 in 12/2014. Surgical History 2010 Hospitalization History 2009
--- OUTSIDE RECORDS SUMMARY | 2019-07-08 17:46 | XMS REPORT ---
:1990 Author Organization [facility] Address [address] [place] [address] Care Team Providers Name Role Phone Minor Patel Unavailable Unavailable PROBLEMS Type Condition ICD9-CM Code [id number] Code Onset Condition SNOMED Code Dates Status Problem Other chronic G89.29 Active 56409430 pain Problem Primary insomnia F51.01 Active 2787277 Problem History of Z86.32 Active 096300494 gestational diabetes Problem Hx gestational Z86.32 Active [id number] diabetes ALLERGIES No Information ENCOUNTERS Encounter Location Date Diagnosis Facilitated Enrollment - UNKNOWN Jul, [address] Jun, [facility] [place] [address] Jun, [place] [address] Jun, Positive urine [place] [address] test Z32.01 ; Routine screening for STI (sexually transmitted infection) Z11.3 and Pain of right upper extremity M79.601 [facility] [address] [facility], [place] [address] Apr, [facility] [place] [address] Apr, Encounter for Nexplanon [place] [address] removal Z[address] Apr, [place] [address] Case Management [address] [place], [place] [address] [facility] [address] [place], [place] [address] [place] Apr, [facility] [place] [address] [facility] [address] [place] Feb, [facility] [place] [address] [facility] [address] [place] Jan, [facility] [place] [address] [facility] - Resource - [place] UNKNOWN Jan, [facility] [address] [place] Jan, [facility] [place] [address] [place] [address] [place] Jan, [facility] [place] [address] [facility] [address] [place] Dec, [place] [address] [place] Jaleel Navarro [address] [place], Pain of left foot M79.672 [facility] [address] [place], [place] ; Pain in right foot [id number] M79.671 and Primary insomnia F51.01 [facility] [address] [place], [place] [address] [place] [facility] [address] [place] Apr, [facility] [place] [address] [facility] [address] [place], [place] [address] King Jaleel Migrant [address] Apr, [facility] [address] [place], [place] [id number] [facility] Management [address] [place], [place] [address] [facility] [address] Apr, Low back pain M54.5 and [address] [place], [place] Other chronic pain G89.29 [id number] [place] Guidoy Migrant [address] March, [facility] [address] [place], [place] [id number] [address] [place], [place] [address] King Guidoy Migrant [address] March, Salivary duct obstruction [facility] [address] [place], [place] K11.8 ; Low back pain [id number] M54.5 and Other chronic pain G89.29 [facility] [address] [place], [place] [address] Jan, [place] [address] [facility] [address] Nov, Screening for [address] [place], [place] hypertension Z13.6 ; [id number] Screening for diabetes mellitus (DM) Z13.1 ; Hx gestational diabetes Z86.32 and Influenza vaccine administered Z23 [place] [address] [place] Sep, [facility] [place] [address] [place] Jaleel Migrant [address] Aug, [facility] [address] [place] [id number] [place] Jaleel Migrant [address] Jul, Women's annual routine [facility] [address] [place] gynecological examination [id number] Z01.419 ; Encounter for screening for malignant neoplasm of cervix Z12.4 ; Screening breast examination Z12.31 ; Scar contracture L90.5 and History of gestational diabetes Z86.32 [facility] [address] Jul, [address] [place], [place] [id number] [address] [place] Jun, [facility] [place] [address] [place] Jun, [facility] [place] [address] [place], [facility] [place] [address] [place] Apr, [facility] [place] [address] [facility] [address] [place], [address] [place], [place] [id number] [address] [place], Nexplanon insertion [facility] [place] [address] Z[address] Feb, [place] [address] [place] Sep, [facility] [place] [address] Case Management [address] [place], [place] [address] [place] Jaleel Migrant [address] Aug, [facility] Center [address] [place], [place] [id number] Case Management [address] [place], [place] [address] [facility] [address] Aug, [address] [place], [place] [id number] [facility] [address] Sep, [address] [place], [place] [id number] [facility] [address] Sep, Need for prophylactic [address] [place], [place] vaccination and [id number] inoculation against influenza Z23 Case Management [address] [place], [place] [address] [place] [address] [place] Jun, Abdominal pain, right [facility] [place] [address] lower quadrant 789.03 and Obesity 278.00 [facility] [address] [place], [address] [place] [id number] [facility] [address] [place] [address] Rd Suite [place], ABDMNAL PAIN [facility] SITE [address] [place], [place] 789.00 and SCREEN FOR [id number] HYPERTENSION V81.1 [facility] [address] [place] [address] Rd [address] [place], [address] [place], [place] [id number] [address] [place], [place] [address] King Jaleel Migrant [address] [place], Amenorrhea 626.0 ; Health Center [address] [place], [place] History of gestational [id number] diabetes V12.21 ; Contraception management V25.9 and Pelvic pain in female 625.[address] [place], [facility] [address] Facilitated Enrollment - [address] [facility] [place], [place] [address] [facility] [address] [place] [address] Rd Suite Dec, SCREEN FOR HYPERTENSION [address] [place] V81.1 ; History of [id number] gestational diabetes V12.21 and Abnormal glucose 790.29 Facilitated Enrollment - UNKNOWN Oct, [facility] [address] [facility] Jun, [place] [address] Case Management [address] [place], [place] [address] IMMUNIZATIONS No Known Immunizations SOCIAL HISTORY Never Assessed REASON FOR REFERRAL FUNCTIONAL STATUS PLAN OF CARE VITAL SIGNS MEDICATIONS Unknown Medications PROCEDURES No Known procedures RESULTS No Results REASON FOR VISIT Information Request Insurance Providers [facility] Patient Patient Patient Patient Patient Subscriber Subscriber Subscriber Group Insurance Plan Plan Plan Plan ID Relationship Address Phone Name Date of ID Name Date of No Type Insurance Insurance Insurance Coverage to Subscriber Address Phone Name Dates Case Man [phone] Case Man self [place] [id number] [facility] [place] [address] [facility] [address] [employer] Voucher Voucher Case Man [phone] Case Man self [place] [id number] [facility] [place] [address] [facility] Christina [facility] [address] [employer] Voucher Voucher MEDICAL (GENERAL) HISTORY Type Description Date Medical History History of gestational Diabetes in 2009 and 2013, on oral meds Medical History Pre-diabetes: A1c: 6.0 in 12/2014. Surgical History 2009 Hospitalization History 2010
[2019-07-08] MEDS ORDERED: Acetaminophen TAB* 325 MG PO ONE (18:25)
[2019-07-08 18:59] VITALS: BP 105/56
--- NOTE | 2019-07-09 05:27 | ED ---
Abdominal Pain/Female - HPI Summary HPI Summary: This patient is a 29-year-old guinean speaking female presenting to the ED with mild right-sided abdominal tenderness 2 days. She believes she may be 4-5 weeks and LMP was May 10, 2019. Denies nausea, vomiting, diarrhea, constipation. She denies any urinary symptoms or back pain. Denies any vaginal bleeding or discharge. Pain is mild, rated a 2/10. She has not been taking anything for relief. Symptoms are not worse with positioning or better with rest. She states she has in her otherwise usual state of health. 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 - History of Current Complaint Chief Complaint: EDAbdPain Stated Complaint: 4-5 WEEKS /ABD PAIN PER PT Time Seen by Provider: 07/08/19 15:07 Hx Obtained From: Patient Hx Last Menstrual Period: last month ?: No Onset/Duration: Sudden Onset Timing: Constant Severity Initially: Moderate Severity Currently: Moderate Pain Intensity: 4 Pain Scale Used: 0-10 Numeric Location: Discrete At: RLQ Radiates: No Aggravating Factor(s): Nothing Alleviating Factor(s): Nothing Associated Signs and Symptoms: Positive: Negative - Risk Factors Ectopic Risk Factor: Negative Ovarian Torsion Risk Factor: Negative Allergies/Adverse Reactions: Allergies Allergy/AdvReac Type Severity Reaction Status Date / Time No Known Allergies Allergy Verified 07/08/19 15:03 PMH/Surg Hx/FS Hx/Imm Hx Previously Healthy: Yes Endocrine/Hematology History: Denies: Hx Diabetes Cardiovascular History: Denies: Hx Hypertension Respiratory History: Denies: Hx Asthma - Surgical History Surgery Procedure, Year, and Place: n/a - Immunization History Hx Pertussis Vaccination: No Immunizations Up to Date: Yes Infectious Disease History: No Infectious Disease History: Denies: Traveled Outside the [place] in Last 30 Days - Family History Known Family History: Positive: Unknown - Social History Occupation: Employed Full-time Lives: With Family Alcohol Use: None Substance Use Type: Reports: None Smoking Status (MU): Never Smoked Tobacco Review of Systems Negative: Fever, Chills, Fatigue, Skin Diaphoresis Negative: Palpitations, Chest Pain Negative: Shortness Of Breath, Cough Positive: Abdominal Pain. Negative: Vomiting, Diarrhea Genitourinary: Negative Positive: no symptoms reported, see HPI Neurological: Negative All Other Systems Reviewed And Are Negative: Yes Physical Exam Triage Information Reviewed: Yes Vital Signs On Initial Exam: Initial Vitals Temp Pulse Resp BP Pulse Ox 98.0 F 54 14 108/50 99 07/08/19 15:00 07/08/19 15:00 07/08/19 15:00 07/08/19 15:00 07/08/19 15:00 Vital Signs Reviewed: Yes Appearance: Positive: Well-Appearing, Well-Nourished Skin: Positive: Warm, Skin Color Reflects Adequate Perfusion Head/Face: Positive: Normal Head/Face Inspection Eyes: Positive: EOMI, ROSE, Conjunctiva Clear Neck: Positive: Supple, No Lymphadenopathy Respiratory/Lung Sounds: Positive: Clear to Auscultation, Breath Sounds Present Cardiovascular: Positive: RRR, Pulses are Symmetrical in both Upper and Lower Extremities Abdomen Description: Positive: Other: - right sided lower quadrant pain - intermittent Musculoskeletal: Positive: Strength/ROM Intact Neurological: Positive: Sensory/Motor Intact, Alert, Oriented to Person Place, Time, Speech Normal Psychiatric: Positive: Affect/Mood Appropriate Diagnostics - Vital Signs Vital Signs Temp Pulse Resp BP Pulse Ox 07/08/19 18:59 98.3 F 56 16 105/56 99 07/08/19 15:00 98.0 F 54 14 108/50 99 - Laboratory Lab Results: Lab Results 07/08/19 07/08/19 Range/Units 15:26 15:28 WBC 10.1 (3.5-10.8) 10^3/uL RBC 3.74 (3.70-4.87) 10^6 /uL Hgb 11.5 L (12.0-16.0) g/dL Hct 34 L (35-47) % MCV 90 (80-97) fL MCH 31 (27-31) pg MCHC 34 (31-36) g/dL RDW 13 (10-15) % Plt Count 201 (150-450) 10^3/uL MPV 8.7 (7.4-10.4) fL Neut % (Auto) 74.2 % Lymph % (Auto) 19.2 % [place] % (Auto) 5.8 % Eos % (Auto) 0.5 % Baso % (Auto) 0.3 % Absolute Neuts (auto) 7.5 (1.5-7.7) 10^3/ul Absolute Lymphs (auto) 1.9 (1.0-4.8) 10^3/ul Absolute Monos (auto) 0.6 (0-0.8) 10^3/ul Absolute Eos (auto) 0.0 (0-0.6) 10^3/ul Absolute Basos (auto) 0.0 (0-0.2) 10^3/ul Absolute Nucleated RBC 0.0 10^3/ul Nucleated RBC % 0.0 Sodium 135 (135-145) mmol/L Potassium 3.4 L (3.5-5.0) mmol/L Chloride 107 (101-111) mmol/L Carbon Dioxide 22 (22-32) mmol/L Anion Gap 6 (2-11) mmol/L BUN 6 (6-24) mg/dL Creatinine 0.50 L (0.51-0.95) mg/dL Est GFR ( Amer) 175.3 (>60) Est GFR (Non-Af Amer) 144.9 (>60) BUN/Creatinine Ratio 12.0 (8-20) Glucose 125 H (70-100) mg/dL Calcium 8.9 (8.6-10.3) mg/dL Total Bilirubin 0.30 (0.2-1.0) mg/dL AST 15 (13-39) U/L ALT 22 (7-52) U/L Alkaline Phosphatase 55 (34-104) U/L C-Reactive Protein 4.24 (<8.01) mg/L Total Protein 6.8 (6.4-8.9) g/dL Albumin 4.1 (3.2-5.2) g/dL Globulin 2.7 (2-4) g/dL Albumin/Globulin Ratio 1.5 (1-3) Beta HCG, Quant 926089.00 mIU/mL Result Diagrams: 07/08/19 15:26 07/08/19 15:28 Lab Statement: Any lab studies that have been ordered have been reviewed, and results considered in the medical decision making process. Abdominal Pain Fem Course/Dx - Course Course Of Treatment: During his course of treatment, the patient's evaluated for right-sided lower quadrant pain. On physical examination, there is no tenderness throughout lower quadrant. An hCG was obtained which shows 130,309. There is no white blood cell count and no CRP. ultrasound obtained which shows an 8 week 2 day intrauterine . Discussed findings with the patient. Pain has been intermittent and not currently present. Pain is most likely related to some round ligament pain. Appendicitis less likely as she is afebrile, normal WBC, normal CRP and currently asymptomatic. She will return if she has any worsening symptoms, however she is okay for discharge at this time in stable condition. Vital signs are stable. - Diagnoses Differential Diagnosis: Positive: Other - appendicitis, constipation Provider Diagnoses: Abdominal pain, Discharge ED - Sign-Out/Discharge Documenting (check all that apply): Patient Departure Patient Received Moderate/Deep Sedation with Procedure: No - Discharge Plan Condition: Stable Disposition: HOME Prescriptions: Acetaminophen TAB* [Tylenol TAB*] 650 mg PO Q6H PRN 7 Days #30 tab PRN Reason: Pain - Moderate Patient Education Materials: (ED) Referrals: No Primary Care Phys,NOPCP [Primary Care Provider] - Additional Instructions: Genaro was useasound is OK 8 weeks - Billing Disposition and Condition Condition: STABLE Disposition: Home
== END 2019-07-08 18:40 | disposition home or self-care (01) ==
LOC: ED 14:52
DX: O26.891 Other specified pregnancy related conditions, first trimester (principal); R10.31 Right lower quadrant pain; Z3A.08 8 weeks gestation of pregnancy
CPT/HCPCS: 36415; 76801; 80053; 84702; 85025; 86140; 99282; A9270-GY

== ENCOUNTER 2020-02-07 11:02 | Inpatient (IN) | payer OTHER ==
[2020-02-07] MEDS ORDERED: Lactated Ringers 1000 ML Bag* 1,000 ML IV ONE (11:44)
[2020-02-07] MEDS ORDERED: Buffered Lidocaine 1% SYRIN* 1 ML/SYRINGE INTRADERM ONE (11:44)
--- NOTE | 2020-02-07 11:52 | HP ---
General Information - Reason for Visit LABOR 39 0/7 weeks A@DM Desires vaginal after section - General Information Maternal Age: 29 Grav: 3 Para: 2 SAB: 0 IEA: 0 Estimated Due Date: 02/14/20 Determined By: LMP Maternal Blood Type and Rh: O Positive - Results this Serology/RPR Result: Non-Reactive Rubella Result: Non-Immune HBsAg Result: Negative HIV Result: Negative GBS Culture Result: Negative Past Medical History Delivery History: See Records Pertinent Past Medical History: See Records Pertinent Past Surgical History: See Records Pertinent Family History: See Records - Antepartal Records Antepartal Records: Reviewed, Complicated by: - A2DM desires Review of Systems Constitutional: Uncomfortable CV Complaint: No Respiratory: Shortness of Breath: No Gastrointestinal: Soft Stool Genitourinary: No Leaking Fluid Musculoskeletal: No Complaint Neurological: No Headache Movement: Normal Exam Allergies/Adverse Reactions: Allergies No Known Allergies Allergy (Verified 07/08/19 15:03) - Measurements Height: 5 ft Weight: 172 lb Weight in lbs: 172.455295 Body Mass Index (BMI): 33.5 Pre- Weight: 140 lb Weight Gained This : 32 lbs and 0 ozs - Exam Breast: Breast Exam Deferred CVA: No CVA Tenderness Extremities: No Edema Heart: Normal Rhythm/Heart Sounds HEENT: No Significant Findings Lungs: Clear Bilaterally Rectal: Rectal Exam Deferred Reflexes: DTR 2+ Thyroid: No Thyromegaly - Abdominal Exam Abdomen Exam: Non-Tender - Ultrasound/Biophysical Profile Ultrasound Status: Bedside Exam Ultrasound Findings: vertex Targeted Exam Findings Cervical Exam: 8cm Effacement: 100% Station: 0 Presenting Part: Vertex Membrane Status: AROM - meconium EFM Findings - External Monitor Findings Baseline Heart Rate: 150 External Monitor Findings: Accelerations Present, No Pattern of Variable or Late Decelerations, Variability Moderate Contractions: Regular - q4' Assessment/Plan - Obstetrical Risk Factors Obstetrical Risk Factors: Gestational Diabetes - Plan Plan: Admit - Anticipate Vaginal Delivery
[2020-02-07] MEDS ORDERED: Lactated Ringers 1000 ML Bag* 1,000 ML IV SCH ×2 (12:00→13:00)
--- NOTE | 2020-02-07 12:28 | PROCNOTE ---
[facility] OB: Delivery Note - Delivery A Date of : 02/07/20 Time of : 13:01 [place] Sex: Female Weight at : 8 lb 4 oz Score 1 Minute: 9 Score 5 Minutes: 9 Gestational Age in Weeks and Days at Delivery: 39 Weeks and 0 Days Delivery Method: Spontaneous Vaginal Labor: Spontaneous Did Patient attempt ?: Yes, Successful Amniotic Fluid: Meconium Estimated Blood Loss: 300 Anesthesia Comment: local 15 cc 1% lodocaine at perimeum Delivered By: Marlene Pelletier - Nursery Level of Nursery: Regular/Bedside - Perineum Perineal Injury: 2nd Degree - repaired stamdard fashiom 2.0 vicryl X 1 Perineal Repair: By Delivering Practioner - Events Delivery Events of Note: Pitocin Only After Delivery - placenta 3vc, intact , spontaneous nuchal cord X1
[2020-02-07] MEDS ORDERED: Witch Hazel PAD* JAR TOPICAL PRN (12:29)
[2020-02-07] MEDS ORDERED: Dibucaine 1% 28.35 GM TUBE PR PRN (12:29)
[2020-02-07] MEDS ORDERED: Glycerin ADULT SUPP PR PRN (12:29)
[2020-02-07 12:31] LABS: Urine Benzodiazepine Screen None Detected (None Detect); Urine Opiates Screen None Detected (None Detect)
[2020-02-07] MEDS ORDERED: Oxytocin in LR* 20 UNITS/1,000 ML BAG IVPB SCH (13:00)
[2020-02-07] MEDS ORDERED: OXYTOCIN* 10 UNITS/ML 1 ML VIAL ONE (13:43)
[2020-02-07] MEDS: Simethicone TAB* 80 MG TAB.CHEW PO SCH ×2 (13:57→19:56)
[2020-02-07] MEDS ORDERED: Lidocaine 1% INJ* 10 MG/ML 30 ML SDV ONE (14:14)
[2020-02-07] MEDS: Docusate CAP* 100 MG PO SCH ×2 (16:18→19:56)
[2020-02-07] MEDS: Ibuprofen TAB* 600 MG PO PRN (16:18)
[2020-02-07] MEDS: Acetaminophen TAB* 325 MG PO PRN (19:56)
[2020-02-08 07:07] LABS: ABS Lymphocytes 2.2 10^3/ul (1.0-4.8); ABS Monocytes 0.5 10^3/ul (0-0.8); ABS Neutrophils 7.8 10^3/ul (1.5-7.7); Eosinophil % 0.2 %; Hematocrit 30 % (35-47); Hemoglobin 10.4 g/dL (12.0-16.0); Lymphocyte % 20.8 %; Mean Corpuscular HGB Conc 34 g/dL (31-36); Mean Corpuscular Hemoglobin 30 pg (27-31); Mean Corpuscular Volume 86 fL (80-97); Mean Platelet Volume 9.6 fL (7.4-10.4); Platelet Count 156 10^3/uL (150-450); Red Blood Count 3.52 10^6 /uL (3.70-4.87); Red Cell Distribution Width 15 % (10-15); White Blood Count 10.6 10^3/uL (3.5-10.8)
[2020-02-08] MEDS: Ibuprofen TAB* 600 MG PO PRN ×2 (08:11→14:52)
[2020-02-08] MEDS: Docusate CAP* 100 MG PO SCH ×3 (08:11→19:56)
[2020-02-08] MEDS ORDERED: Ferrous Gluconate TAB* 324 MG TAB PO SCH (09:00)
[2020-02-08] MEDS ORDERED: Measles, Mumps,Rubella VACC* 0.5 ML/VIAL SUBCUT ONE (18:00)
[2020-02-08] MEDS: Acetaminophen TAB* 325 MG PO PRN (19:56)
[2020-02-09] MEDS: Ibuprofen TAB* 600 MG PO PRN ×2 (04:05→11:46)
[2020-02-09] MEDS: Acetaminophen TAB* 325 MG PO PRN (07:55)
[2020-02-09] MEDS: Docusate CAP* 100 MG PO SCH (07:58)
[2020-02-09 08:03] VITALS: BP 102/52
== END 2020-02-09 13:25 | disposition home or self-care (01) | DRG 560 ==
LOC: MCHOBOUT 11:02 → MCHOB 11:08
PROVIDERS: ADMIT Obstetrics & Gynecology; ATTEND Obstetrics & Gynecology
PROC: 10E0XZZ Delivery of Products of Conception, External Approach (ICD-10-PCS; principal; 2020-02-07)
PROC: 10907ZC Drainage of Amniotic Fluid, Therapeutic from Products of Conception, Via Natural or Artificial Opening (ICD-10-PCS; 2020-02-07)
PROC: 0KQM0ZZ Repair Perineum Muscle, Open Approach (ICD-10-PCS; 2020-02-07)
DX: O77.0 Labor and delivery complicated by meconium in amniotic fluid (principal); Z37.0 Single live birth; O70.1 Second degree perineal laceration during delivery; O69.81X0 Labor and delivery complicated by cord around neck, without compression, not applicable or unspecified; O34.211 Maternal care for low transverse scar from previous cesarean delivery; O24.429 Gestational diabetes mellitus in childbirth, unspecified control; Z3A.39 39 weeks gestation of pregnancy
CPT/HCPCS: 36415; 80307; 82947; 85025; 90707; A9270-GY; G0480; J2590